=== PATIENT | female | born 1975 | race Caucasian/White ===

== ENCOUNTER → 2016-07-05 | Outpatient (CLI) | payer OTHER | LOC: FIMAGING 13:28 | PROVIDERS: ATTEND Advanced Practice Midwife | DX: O36.80X0 Pregnancy with inconclusive fetal viability, not applicable or unspecified (principal); O09.521 Supervision of elderly multigravida, first trimester; Z3A.01 Less than 8 weeks gestation of pregnancy ==

== ENCOUNTER → 2016-07-11 | Outpatient (CLI) | payer OTHER | LOC: FIMAGING 13:21 | PROVIDERS: ATTEND Advanced Practice Midwife | DX: O20.8 Other hemorrhage in early pregnancy (principal); O09.521 Supervision of elderly multigravida, first trimester; Z3A.08 8 weeks gestation of pregnancy ==